=== PATIENT | female | born 2000 | race Hispanic/Latino ===

== ENCOUNTER 2022-05-26 21:57 | Emergency (ER) | payer MEDICAID ==
[~2022-05-26] VITALS: Ht 157.5 cm; Wt 57.6 kg
[2022-05-26 23:12] LABS: APPEARANCE,URINE CLEAR (CLEAR); BILIRUBIN,URINE NEGATIVE (NEGATIVE); COLOR,URINE LIGHT-YELLOW (YELLOW); GLUCOSE, URINE (UA) NEGATIVE (NEGATIVE); KETONES,URINE NEGATIVE (NEGATIVE); LEUKOCYTE ESTERASE ,URINE 25 Leu/uL (NEGATIVE); NITRATE,URINE NEGATIVE (NEGATIVE); OCCULT BLOOD,URINE NEGATIVE (NEGATIVE); PROTEIN,URINE NEGATIVE (NEGATIVE); UROBILINOGEN,URINE 0.2 mg/dL (0.2-1.0)
[2022-05-26 23:14] LABS: HCG,QUALITATIVE URINE NEGATIVE (NEGATIVE)
[2022-05-26 23:16] LABS: SQUAMOUS EPITHELIAL CELL,UR RARE /HPF (0-2)
[2022-05-27] MEDS ORDERED: KETOROLAC 15MG/ML VIAL (15MG/ML) IM ONE
[2022-05-27] MEDS ORDERED: CYCLOBENZAPRINE HCL 10 MG TABLET ONE (00:19)
[2022-05-27] MEDS ORDERED: CYCLOBENZAPRINE HCL 10 MG TABLET PO ONE (00:30)
[2022-05-27] MEDS ORDERED: IBUP-1493 PO (00:57)
[2022-05-27] MEDS ORDERED: CYCL-309 PO (00:57)
[2022-05-27 01:02] VITALS: BP 117/69
== END 2022-05-27 01:06 | disposition home or self-care (01) ==
LOC: EDH 21:57
DX: M54.9 Dorsalgia, unspecified (principal); R06.02 Shortness of breath
CPT/HCPCS: 99284; 71045; 81001; 81025; 72070; 96372; J1885